=== PATIENT | female | born 1995 | race American Indian/Alaskan Native ===

== ENCOUNTER 2016-11-06 23:51 | Outpatient (CLI) | payer BC, MEDICAID ==
[2016-11-07 00:11] VITALS: BP 111/60
[2016-11-07] MEDS ORDERED: LACTATED RINGERS 1,000 ML IV ONE (00:20)
[2016-11-07] MEDS ORDERED: TYLENOL PO ONE (00:33)
== END 2016-11-07 03:35 | disposition home or self-care (01) ==
LOC: EDBD 23:51 → TRG 23:51
PROVIDERS: ATTEND Obstetrics & Gynecology
DX: O47.03 False labor before 37 completed weeks of gestation, third trimester (principal); Z3A.33 33 weeks gestation of pregnancy